=== PATIENT | male | born 1995 | race Two or more races ===

== ENCOUNTER 2022-02-27 18:31 | Emergency (ER) | payer OTHER ==
[~2022-02-27] VITALS: Ht 167.6 cm; Wt 66.0 kg
[2022-02-27 19:00] VITALS: BP 155/80
== END 2022-02-27 20:15 | disposition home or self-care (01) ==
LOC: ER 18:31
DX: S09.90XA Unspecified injury of head, initial encounter (principal); R51.9 Headache, unspecified; V49.40XA Driver injured in collision with unspecified motor vehicles in traffic accident, initial encounter; Y93.89 Activity, other specified; Y92.89 Other specified places as the place of occurrence of the external cause; Y99.8 Other external cause status